=== PATIENT | female | born 1965 | race Caucasian/White ===

== ENCOUNTER 2022-11-10 17:21 | Emergency (ER) | payer MEDICAID ==
[~2022-11-10] VITALS: Ht 165.1 cm; Wt 77.0 kg
[~2022-11-10 17:21] MED LIST: ACET-2708 MT; BACL-141 MT
[2022-11-10 17:35] VITALS: BP 117/59; PULSE 63; RESP 20; TEMP 97.9; O2SAT 100
[2022-11-10] MEDS ORDERED: MELO-105 MT (18:12)
== END 2022-11-10 18:42 | disposition home or self-care (01) ==
LOC: ER 17:21
DX: G89.29 Other chronic pain (principal); M79.671 Pain in right foot; F19.90 Other psychoactive substance use, unspecified, uncomplicated
CPT/HCPCS: 99283

== ENCOUNTER 2024-05-23 12:51 | Emergency (ER) | payer MEDICAID ==
[~2024-05-23] VITALS: Ht 157.5 cm; Wt 69.0 kg
[~2024-05-23 12:51] MED LIST changes: +MELO-105 MT
[2024-05-23 12:52] VITALS: O2SAT 96
[2024-05-23 13:01] VITALS: BP 122/64; PULSE 65; RESP 16; TEMP 36.6; O2SAT 100
== END 2024-05-23 17:02 | disposition left against medical advice (07) ==
LOC: ER 12:51
DX: M79.605 Pain in left leg (principal); Z53.21 Procedure and treatment not carried out due to patient leaving prior to being seen by health care provider